=== PATIENT | male | born 1985 | race Caucasian/White ===

== ENCOUNTER 2020-05-13 18:31 | Emergency (ER) | payer OTHER ==
[~2020-05-13] VITALS: Ht 193 cm; Wt 120.4 kg
[2020-05-13 18:42] VITALS: BP 153/104
--- NOTE | 2020-05-13 19:01 | NUR ---
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
[2020-05-13 20:59] LABS: MICROSCOPIC NOT IND
[2020-05-13] MEDS ORDERED: KETOROLAC 30 MG/1 ML IM ONE (21:00)
[2020-05-13 21:02] LABS: BASOPHILS % (AUTO) 1 % (0-1); EOSINOPHILS % (AUTO) 5 % (1-7); LYMPHOCYTES % (AUTO) 32 % (22-44); MD NO; MEAN CORPUSCULAR HEMOGLOBIN 30.8 pg (27.5-34.5); MONOCYTES % (AUTO) 13 % (2-9); NEUTROPHILS % (AUTO) 49 % (42-75); PLATELET COUNT 324 x10^3/uL (130-400); RED BLOOD COUNT 5.24 x10^6/uL (4.38-5.82); RED CELL DISTRIBUTION WIDTH 13.3 % (9.4-14.8)
[2020-05-13] MEDS ORDERED: KETOROLAC 30 MG/1 ML ONE (21:05)
--- NOTE | 2020-05-13 21:09 | NUR ---
Pain med given as ordered. UA reviewed with pt. Rash to R flank area present.
[2020-05-13 21:10] LABS: ALANINE AMINOTRANSFERASE 53 U/L (12-78); ALBUMIN 4.3 g/dL (3.4-5.0); ANION GAP 5 mmol/L (5-15); CALCIUM 8.9 mg/dL (8.5-10.1); CHLORIDE 107 mmol/L (98-107); CREATININE 1.03 mg/dL (0.7-1.3)
[2020-05-13 21:12] LABS: ALKALINE PHOSPHATASE 108 U/L (45-117); BILIRUBIN,TOTAL 0.5 mg/dL (0.2-1.0); TOTAL PROTEIN 7.6 g/dL (6.4-8.2)
[2020-05-13] MEDS ORDERED: LISI-170 PO (21:17)
[2020-05-13] MEDS ORDERED: FLUO20CA19 PO (21:17)
[2020-05-13] MEDS ORDERED: BUPR200T2 PO (21:17)
[2020-05-13] MEDS ORDERED: METO50TA82 PO (21:17)
--- NOTE | 2020-05-13 21:20 | NUR ---
executive meeting manager completed. Pt lab reviewed and chart marked for recheck. Snack and soda provided.
[2020-05-13] MEDS ORDERED: ACYCLOVIR 800 MG TABLET PO ONE (22:30)
== END 2020-05-13 23:03 | disposition home or self-care (01) ==
LOC: ED 22:30
DX: M54.5 Low back pain (principal); B02.9 Zoster without complications; I10 Essential (primary) hypertension; Z87.442 Personal history of urinary calculi
CPT/HCPCS: 36415; 80053; 81003; 85025; 96372; 99283; J1885; J7512